=== PATIENT | female | born 1990 | race Caucasian/White ===

== ENCOUNTER 2022-01-25 17:18 | Emergency (ER) | payer OTHER ==
[~2022-01-25 17:18] MED LIST: COLACE 100MG C100 MG PO; CYCLOBENZAPRINE10 MG PO; NAPROSYN500 MG PO
[2022-01-25] MEDS ORDERED: IBUPROFEN600 MG PO (19:53)
== END 2022-01-25 20:11 | disposition home or self-care (01) ==
LOC: ER1 17:18
DX: M25.572 Pain in left ankle and joints of left foot (principal); F17.210 Nicotine dependence, cigarettes, uncomplicated; W01.0XXA Fall on same level from slipping, tripping and stumbling without subsequent striking against object, initial encounter; Y92.814 Boat as the place of occurrence of the external cause
CPT/HCPCS: 73590; 73610; 73630; 99283

== ENCOUNTER → 2022-02-10 | Outpatient (CLI) | payer OTHER ==
[~2022-02-10] MED LIST changes: +IBUPROFEN600 MG PO
== END ==
LOC: KOH-I 13:54
DX: M25.572 Pain in left ankle and joints of left foot (principal)
CPT/HCPCS: 73610; 73650